=== PATIENT | female | born 1975 | race Caucasian/White ===

== ENCOUNTER 2018-10-09 08:01 | Outpatient (RCR) | payer OTHER | END 2018-10-28 | disposition home or self-care (01) | PROVIDERS: ATTEND Urology | DX: N76.0 Acute vaginitis (principal); Z92.3 Personal history of irradiation ==

== ENCOUNTER 2018-12-16 08:06 | Outpatient (RCR) | payer OTHER | END 2018-12-28 | disposition home or self-care (01) | PROVIDERS: ATTEND Urology | DX: C53.9 Malignant neoplasm of cervix uteri, unspecified (principal); N76.0 Acute vaginitis; N94.10 Unspecified dyspareunia; Z98.890 Other specified postprocedural states ==

== ENCOUNTER 2019-02-17 08:22 | Outpatient (RCR) | payer OTHER | END 2019-04-12 | disposition home or self-care (01) | PROVIDERS: ATTEND Urology | DX: C53.9 Malignant neoplasm of cervix uteri, unspecified (principal); N76.0 Acute vaginitis; N94.10 Unspecified dyspareunia; Z98.890 Other specified postprocedural states ==